=== PATIENT | male | born 1970 | race Caucasian/White ===

== ENCOUNTER 2018-02-05 09:22 | Emergency (ER) | payer MEDICAID ==
[~2018-02-05] VITALS: Ht 185.4 cm; Wt 84.0 kg
[~2018-02-05 09:22] MED LIST: IBUP-1051 PO; NORCO10T PO; PROC-8 PO
[2018-02-05 09:25] VITALS: BP 165/106
[2018-02-05] MEDS ORDERED: AMOX-422 PO (10:35)
== END 2018-02-05 10:51 | disposition home or self-care (01) ==
LOC: ER 09:22
DX: H66.92 Otitis media, unspecified, left ear (principal); G89.29 Other chronic pain; Z86.14 Personal history of Methicillin resistant Staphylococcus aureus infection; F12.10 Cannabis abuse, uncomplicated; F17.210 Nicotine dependence, cigarettes, uncomplicated
CPT/HCPCS: 99283

== ENCOUNTER 2019-01-05 22:52 | Emergency (ER) | payer MEDICAID ==
[~2019-01-05] VITALS: Ht 185.4 cm; Wt 82.0 kg
[2019-01-05 22:55] VITALS: BP 168/106
[2019-01-06] MEDS ORDERED: HYDROcodone/acetaminophen 5mg/325mg tablet PO ONE (00:30)
[2019-01-06] MEDS ORDERED: CEPH500C5 PO (00:32)
== END 2019-01-06 00:48 | disposition home or self-care (01) ==
LOC: ER 22:53
DX: L03.011 Cellulitis of right finger (principal); G89.29 Other chronic pain; F15.90 Other stimulant use, unspecified, uncomplicated; Z86.14 Personal history of Methicillin resistant Staphylococcus aureus infection; Z98.890 Other specified postprocedural states; Z79.899 Other long term (current) drug therapy
CPT/HCPCS: 10060; 99283

== ENCOUNTER 2019-05-10 17:05 | Emergency (ER) | payer MEDICAID ==
[~2019-05-10] VITALS: Ht 185.4 cm; Wt 95.9 kg
[2019-05-10] MEDS ORDERED: epiNEPHrine 1 mg/ml inj IM STA (17:08)
[2019-05-10] MEDS ORDERED: methylPREDNISolone sod succ 125mg/2ml vial IV ONE (17:10)
[2019-05-10] MEDS ORDERED: normal saline 1000ML IV soln IV ONE (17:10)
[2019-05-10] MEDS ORDERED: diphenhydrAMINE 50 mg/ml inj IV ONE (17:10)
[2019-05-10] MEDS ORDERED: famotidine/PF 10 mg/ml inj IV ONE (17:10)
[2019-05-10] MEDS ORDERED: racepinephrine 11.25mg/0.5ml nebule IH ONE (17:10)
[2019-05-10 17:56] LABS: BASOPHILS % (AUTO) 0.1 % (0-1); EOSINOPHILS # (AUTO) 0.1 X10'3 (0-0.9); EOSINOPHILS % (AUTO) 1.1 % (0-6); HEMATOCRIT 47.9 % (42.0-52.0); HEMOGLOBIN 16.4 g/dl (14.0-17.9); LYMPHOCYTES # (AUTO) 5.2 X10'3 (1.1-4.8); LYMPHOCYTES % (AUTO) 49.2 % (21-51); MEAN CORPUSCULAR HEMOGLOBIN 33.6 PG (27.0-31.0); MEAN CORPUSCULAR HGB CONC 34.3 g/dL (33.0-36.5); MONOCYTES # (AUTO) 0.5 X10'3 (0-0.9); NEUTROPHILS # (AUTO) 4.7 X10'3 (1.8-7.7); NEUTROPHILS % (AUTO) 44.6 % (42-75); PLATELET COUNT 278 X10'3 (140-440); RED BLOOD COUNT 4.89 X10'6 (4.70-6.10); RED CELL DISTRIBUTION WIDTH 13.4 % (11.5-14.5); WHITE BLOOD COUNT 10.5 X10'3 (4.5-11.0)
[2019-05-10 18:01] LABS: ALANINE AMINOTRANSFERASE 45 U/L (12-78); ALBUMIN 3.5 G/DL (3.4-5.0); ALBUMIN/GLOBULIN RATIO 0.9 (1.1-1.5); ALKALINE PHOSPHATASE 94 IU/L (46-116); ANION GAP 6 (8-16); ASPARTATE AMINO TRANSFERASE 25 U/L (10-37); BILIRUBIN,TOTAL 0.3 MG/DL (0.1-1.0); BLOOD UREA NITROGEN 12 MG/DL (7-18); CHLORIDE 102 MMOL/L (99-107); CREATININE 0.92 MG/DL (0.60-1.10); GLUCOSE 136 MG/DL (70-104); POTASSIUM 3.5 MMOL/L (3.5-5.1); SODIUM 138 MMOL/L (135-145); TOTAL CARBON DIOXIDE 30.5 MMOL/L (24-32); TOTAL PROTEIN 7.2 G/DL (6.4-8.2); eGFR 88 ML/MIN
--- NOTE | 2019-05-10 18:27 | NUR ---
Patient declines Normal saline aware
[2019-05-10 18:37] VITALS: BP 135/97
== END 2019-05-10 18:39 | disposition home or self-care (01) ==
LOC: ER 17:05
DX: T78.3XXA Angioneurotic edema, initial encounter (principal); L53.8 Other specified erythematous conditions; I10 Essential (primary) hypertension; G89.29 Other chronic pain; F12.90 Cannabis use, unspecified, uncomplicated; Z98.890 Other specified postprocedural states; Z86.14 Personal history of Methicillin resistant Staphylococcus aureus infection; Z79.899 Other long term (current) drug therapy; Y92.89 Other specified places as the place of occurrence of the external cause
CPT/HCPCS: 36415; 71045; 80053; 82948; 85025; 93005; 94640; 94760; 96372; 96374; 96375; 99291; J0171; J1200; J2930; J3490

== ENCOUNTER 2019-08-24 09:34 | Emergency (ER) | payer MEDICAID ==
[~2019-08-24] VITALS: Ht 188 cm; Wt 90.0 kg
[2019-08-24 09:51] VITALS: BP 164/109
[2019-08-24] MEDS ORDERED: SULF1TAB49 PO (10:58)
== END 2019-08-24 11:24 | disposition home or self-care (01) ==
LOC: ER 09:34
DX: L02.211 Cutaneous abscess of abdominal wall (principal); J02.9 Acute pharyngitis, unspecified; G89.29 Other chronic pain; F32.9 Major depressive disorder, single episode, unspecified; F12.90 Cannabis use, unspecified, uncomplicated; F17.210 Nicotine dependence, cigarettes, uncomplicated; Z86.14 Personal history of Methicillin resistant Staphylococcus aureus infection; Z98.890 Other specified postprocedural states; Z88.8 Allergy status to other drugs, medicaments and biological substances; Z79.2 Long term (current) use of antibiotics
CPT/HCPCS: 99283

== ENCOUNTER 2019-10-10 08:42 | Emergency (ER) | payer MEDICAID ==
[~2019-10-10] VITALS: Ht 154.9 cm; Wt 92.9 kg
[2019-10-10 08:55] VITALS: BP 138/104
== END 2019-10-10 09:36 | disposition home or self-care (01) ==
LOC: ER 08:42
DX: J04.0 Acute laryngitis (principal); F17.200 Nicotine dependence, unspecified, uncomplicated; G89.29 Other chronic pain; F12.90 Cannabis use, unspecified, uncomplicated; Z98.890 Other specified postprocedural states; Z86.14 Personal history of Methicillin resistant Staphylococcus aureus infection; Z88.8 Allergy status to other drugs, medicaments and biological substances
CPT/HCPCS: 99281

== ENCOUNTER 2022-04-17 16:02 | Emergency (ER) | payer MEDICAID ==
[~2022-04-17] VITALS: Ht 177.8 cm; Wt 84.5 kg
[2022-04-17 16:25] VITALS: BP 138/113
[2022-04-17] MEDS ORDERED: CEPH250T PO (17:21)
== END 2022-04-17 17:33 | disposition home or self-care (01) ==
LOC: VAS 16:03
DX: L02.412 Cutaneous abscess of left axilla (principal); L73.9 Follicular disorder, unspecified; G89.29 Other chronic pain; F32.9 Major depressive disorder, single episode, unspecified; F12.90 Cannabis use, unspecified, uncomplicated; Z86.14 Personal history of Methicillin resistant Staphylococcus aureus infection; Z72.89 Other problems related to lifestyle; Z79.899 Other long term (current) drug therapy; Z88.8 Allergy status to other drugs, medicaments and biological substances
CPT/HCPCS: 10060; 99283; A6266; A6449

== ENCOUNTER 2022-05-10 15:58 | Emergency (ER) | payer MEDICAID ==
[~2022-05-10] VITALS: Ht 179.1 cm; Wt 84.5 kg
[2022-05-10 16:04] VITALS: BP 164/103
[2022-05-10] MEDS ORDERED: CLIN-97 PO (17:03)
== END 2022-05-10 18:25 | disposition home or self-care (01) ==
LOC: ER 15:59
DX: L02.411 Cutaneous abscess of right axilla (principal); G89.29 Other chronic pain; M54.50 Low back pain, unspecified; F12.90 Cannabis use, unspecified, uncomplicated; Z88.8 Allergy status to other drugs, medicaments and biological substances
CPT/HCPCS: 99283

== ENCOUNTER 2022-11-05 23:45 | Emergency (ER) | payer MEDICAID ==
[~2022-11-05] VITALS: Ht 182.9 cm; Wt 84.1 kg
[~2022-11-05 23:45] MED LIST changes: +CLIN-97 PO
[2022-11-06 03:07] VITALS: BP 164/116
--- NOTE | 2022-11-06 03:46 | NUR ---
I agree with Odette Sanchez assessment.
== END 2022-11-06 03:48 | disposition home or self-care (01) ==
LOC: ER 23:46
DX: M54.9 Dorsalgia, unspecified (principal); I10 Essential (primary) hypertension; G89.29 Other chronic pain; F41.9 Anxiety disorder, unspecified; F32.9 Major depressive disorder, single episode, unspecified; F12.90 Cannabis use, unspecified, uncomplicated; F15.90 Other stimulant use, unspecified, uncomplicated; Z86.14 Personal history of Methicillin resistant Staphylococcus aureus infection; Z72.89 Other problems related to lifestyle; Z79.899 Other long term (current) drug therapy; Z88.8 Allergy status to other drugs, medicaments and biological substances
CPT/HCPCS: 71046; 99283

== ENCOUNTER 2023-01-25 20:11 | Emergency (ER) | payer MEDICAID ==
[~2023-01-25] VITALS: Ht 182.9 cm; Wt 80.0 kg
[2023-01-25 20:15] VITALS: BP 167/107
== END 2023-01-26 01:26 | disposition left against medical advice (07) ==
LOC: ER 20:11
DX: R51.9 Headache, unspecified (principal); Z53.21 Procedure and treatment not carried out due to patient leaving prior to being seen by health care provider
CPT/HCPCS: 99281

== ENCOUNTER 2023-10-17 14:50 | Emergency (ER) | payer MEDICAID ==
[~2023-10-17] VITALS: Ht 182.9 cm; Wt 88.6 kg
[2023-10-17] MEDS ORDERED: epiNEPHrine 1 mg/ml inj IM STA (14:52)
[2023-10-17 14:54] VITALS: TEMP 98
[2023-10-17] MEDS ORDERED: diphenhydrAMINE 50 mg/ml inj IV ONE (14:55)
[2023-10-17] MEDS ORDERED: methylPREDNISolone sod succ 125mg/2ml vial IV ONE (14:55)
[2023-10-17] MEDS ORDERED: famotidine/PF 10 mg/ml inj IV STA (15:27)
[2023-10-17 15:55] VITALS: BP 130/93; PULSE 86; RESP 18; O2SAT 99
[2023-10-17] MEDS ORDERED: FAMO-128 PO (17:38)
[2023-10-17] MEDS ORDERED: DIPH25CA83 PO (17:38)
[2023-10-17] MEDS ORDERED: PRED20TA PO (17:38)
== END 2023-10-17 17:59 | disposition home or self-care (01) ==
LOC: ER 14:51
DX: L50.9 Urticaria, unspecified (principal); T78.1XXA Other adverse food reactions, not elsewhere classified, initial encounter; I10 Essential (primary) hypertension; G89.29 Other chronic pain; F12.90 Cannabis use, unspecified, uncomplicated; F15.90 Other stimulant use, unspecified, uncomplicated; Z72.89 Other problems related to lifestyle; Z79.899 Other long term (current) drug therapy; Z79.2 Long term (current) use of antibiotics; Z88.8 Allergy status to other drugs, medicaments and biological substances; X58.XXXA Exposure to other specified factors, initial encounter
CPT/HCPCS: 96372; 96374; 96375; 99284; J0171; J1200; J2930; J3490

== ENCOUNTER 2023-10-30 00:44 | Emergency (ER) | payer MEDICAID ==
[~2023-10-30] VITALS: Ht 175.3 cm; Wt 75.0 kg
[~2023-10-30 00:44] MED LIST changes: +DIPH25CA83 PO; +FAMO-128 PO
[2023-10-30] MEDS ORDERED: iohexol 350MG/ML 100ml bottle IV ONE (01:49)
[2023-10-30 03:07] LABS: BASOPHILS # (AUTO) 0.1 X10'3 (0-0.2); BASOPHILS % (AUTO) 1.1 % (0-1); EOSINOPHILS # (AUTO) 0.3 X10'3 (0-0.9); HEMATOCRIT 41.9 % (42.0-52.0); HEMOGLOBIN 14.3 g/dl (14.0-17.9); LYMPHOCYTES # (AUTO) 2.9 X10'3 (1.1-4.8); LYMPHOCYTES % (AUTO) 33.6 % (21-51); MEAN CORPUSCULAR HEMOGLOBIN 32.6 PG (27.0-31.0); MEAN CORPUSCULAR HGB CONC 34.2 g/dL (33.0-36.5); MEAN CORPUSCULAR VOLUME 95.4 FL (78-98); MEAN PLATELET VOLUME 8.4 FL (7.4-10.4); MONOCYTES # (AUTO) 0.7 X10'3 (0-0.9); MONOCYTES % (AUTO) 7.8 % (2-12); NEUTROPHILS # (AUTO) 4.7 X10'3 (1.8-7.7); NEUTROPHILS % (AUTO) 54.5 % (42-75); PLATELET COUNT 239 X10'3 (140-440); RED BLOOD COUNT 4.39 X10'6 (4.70-6.10); RED CELL DISTRIBUTION WIDTH 12.9 % (11.5-14.5); WHITE BLOOD COUNT 8.7 X10'3 (4.5-11.0)
[2023-10-30 03:55] LABS: ALANINE AMINOTRANSFERASE 44 U/L (12-78); ALBUMIN 3.1 G/DL (3.4-5.0); ALBUMIN/GLOBULIN RATIO 0.9 (1.1-1.5); ALKALINE PHOSPHATASE 86 IU/L (46-116); ANION GAP 7 (8-16); ASPARTATE AMINO TRANSFERASE 24 U/L (10-37); BILIRUBIN,TOTAL 0.2 MG/DL (0.1-1.0); BLOOD UREA NITROGEN 9 MG/DL (7-18); BUN/CREATININE RATIO 11.5 (10.0-20.0); CALCIUM 8.8 MG/DL (8.5-10.1); CHLORIDE 103 MMOL/L (99-107); CREATININE 0.78 MG/DL (0.60-1.10); GLUCOSE 104 MG/DL (70-104); POTASSIUM 3.4 MMOL/L (3.5-5.1); SODIUM 139 MMOL/L (135-145); TOTAL CARBON DIOXIDE 28.8 MMOL/L (24-32); TOTAL PROTEIN 6.4 G/DL (6.4-8.2); eCRCL 112 ML/MIN; eGFR > 90 ML/MIN
[2023-10-30 04:06] LABS: PRO BRAIN NATRIURETIC PEPTIDE < 30 PG/ML (0-125)
[2023-10-30 07:10] VITALS: BP 119/79; PULSE 75; RESP 16; TEMP 98.4; O2SAT 97
== END 2023-10-30 09:37 | disposition home or self-care (01) ==
LOC: ER 00:45
DX: R07.89 Other chest pain (principal); R06.02 Shortness of breath; M54.6 Pain in thoracic spine; I10 Essential (primary) hypertension; G89.29 Other chronic pain; F41.9 Anxiety disorder, unspecified; F32.9 Major depressive disorder, single episode, unspecified; F12.90 Cannabis use, unspecified, uncomplicated; F15.90 Other stimulant use, unspecified, uncomplicated; Z98.890 Other specified postprocedural states; Z88.8 Allergy status to other drugs, medicaments and biological substances; Z79.899 Other long term (current) drug therapy
CPT/HCPCS: 36415; 71275; 80053; 83880; 84484; 85025; 93005; 99285; J3490; Q9967

== ENCOUNTER 2023-11-08 13:44 | Inpatient (IN) | payer MEDICAID ==
[~2023-11-08] VITALS: Ht 182.9 cm; Wt 89.4 kg
[2023-11-08 15:53] LABS: BASOPHILS % (AUTO) 0.5 % (0-1); EOSINOPHILS # (AUTO) 0.2 X10'3 (0-0.9); EOSINOPHILS % (AUTO) 1.7 % (0-6); HEMOGLOBIN 15.5 g/dl (14.0-17.9); LYMPHOCYTES % (AUTO) 19.6 % (21-51); MEAN CORPUSCULAR HGB CONC 34.6 g/dL (33.0-36.5); MEAN CORPUSCULAR VOLUME 95.3 FL (78-98); MEAN PLATELET VOLUME 8.5 FL (7.4-10.4); MONOCYTES # (AUTO) 0.8 X10'3 (0-0.9); MONOCYTES % (AUTO) 7.9 % (2-12); NEUTROPHILS # (AUTO) 7.3 X10'3 (1.8-7.7); NEUTROPHILS % (AUTO) 70.3 % (42-75); PLATELET COUNT 300 X10'3 (140-440); RED BLOOD COUNT 4.71 X10'6 (4.70-6.10); RED CELL DISTRIBUTION WIDTH 13.2 % (11.5-14.5); WHITE BLOOD COUNT 10.4 X10'3 (4.5-11.0)
[2023-11-08 16:12] LABS: ALANINE AMINOTRANSFERASE 35 U/L (12-78); ALBUMIN 3.1 G/DL (3.4-5.0); ALBUMIN/GLOBULIN RATIO 0.7 (1.1-1.5); ALKALINE PHOSPHATASE 117 IU/L (46-116); ANION GAP 5 (8-16); ASPARTATE AMINO TRANSFERASE 22 U/L (10-37); BILIRUBIN,TOTAL 0.2 MG/DL (0.1-1.0); BLOOD UREA NITROGEN 10 MG/DL (7-18); BUN/CREATININE RATIO 8.6 (10.0-20.0); CALCIUM 8.9 MG/DL (8.5-10.1); CHLORIDE 98 MMOL/L (99-107); CREATININE 1.16 MG/DL (0.60-1.10); GLUCOSE 91 MG/DL (70-104); POTASSIUM 3.8 MMOL/L (3.5-5.1); SODIUM 133 MMOL/L (135-145); TOTAL CARBON DIOXIDE 29.7 MMOL/L (24-32); TOTAL PROTEIN 7.5 G/DL (6.4-8.2); eCRCL 83 ML/MIN; eGFR 66 ML/MIN
[2023-11-08] MEDS ORDERED: morphine 4 MG/ML inj SYRINge IV ONE (16:20)
[2023-11-08] MEDS ORDERED: iohexol 300mg/ml 100ml inj. ONE (16:45)
[2023-11-08] MEDS ORDERED: vancomycin/NS 1 GM ADD-VANTAGE 250 ML IV ONE (18:05)
[2023-11-08] MEDS: nicotine 21mg patch - 24 hr TD SCH (20:49)
[2023-11-08] MEDS ORDERED: potassium Cl 20 mEq SR tablet PO PRN ×2 (21:15)
[2023-11-08] MEDS ORDERED: morphine 2 MG/ML inj. syringe IV PRN ×2 (21:15)
[2023-11-08] MEDS: normal saline 1000ml 1,000 ML IV SCH (21:15)
[2023-11-08] MEDS ORDERED: potassium Cl 40MEQ/1/2NS 520ml 520 ML IV PRN (21:15)
[2023-11-08] MEDS ORDERED: mag hydrox/Alum hydrox/simeth 30ml oral suspension PO PRN (21:15)
[2023-11-08] MEDS ORDERED: magnesium Cl slow-release 64mg tablet PO PRN (21:15)
[2023-11-08] MEDS ORDERED: magnesium 2GM in 50ml NS 50 ML IV PRN (21:15)
[2023-11-08] MEDS ORDERED: diphenhydrAMINE 25mg capsule PO PRN (21:15)
[2023-11-08] MEDS ORDERED: ondansetron/PF 4mg/2ml inj IV PRN (21:15)
[2023-11-08] MEDS ORDERED: HYDROcodone/acetaminophen 5mg/325mg tablet PO PRN (21:15)
[2023-11-08] MEDS ORDERED: acetaminophen 325mg tablet PO PRN (21:15)
[2023-11-08] MEDS ORDERED: magnesium 4gm in 100ml NS 100 ML IV PRN (21:15)
[2023-11-08] MEDS ORDERED: LORazepam 2 mg/ml vial IV PRN (21:25)
[2023-11-08 23:45] VITALS: BP 143/88; PULSE 100; RESP 22; TEMP 98.8; O2SAT 96
[2023-11-08 23:50] VITALS: RESP 22; O2SAT 96
[2023-11-09] VITALS (7 sets, daily range): BP systolic 117–148; BP diastolic 71–89; PULSE 89–98; RESP 18–22; TEMP 97.7–99.9; O2SAT 90–98
[2023-11-09] MEDS: piperacillin/tazo 4.5gm/100ml 100 ML IV SCH ×3 (00:08→16:06)
[2023-11-09] MEDS: magnesium hydroxide 30ml (MOM) UD suspension PO PRN ×2 (00:09→22:04)
[2023-11-09] MEDS: heparin, porcine 5000 units/ml vial SQ SCH ×3 (00:15→16:07)
[2023-11-09] MEDS ORDERED: vancomycin/NS 1 GM ADD-VANTAGE 250 ML IV SCH (06:00)
[2023-11-09 06:59] LABS: BASOPHILS # (AUTO) 0.1 X10'3 (0-0.2); BASOPHILS % (AUTO) 1.2 % (0-1); EOSINOPHILS # (AUTO) 0.2 X10'3 (0-0.9); EOSINOPHILS % (AUTO) 2.1 % (0-6); HEMATOCRIT 39.9 % (42.0-52.0); HEMOGLOBIN 13.8 g/dl (14.0-17.9); LYMPHOCYTES % (AUTO) 22.4 % (21-51); MEAN CORPUSCULAR HEMOGLOBIN 32.8 PG (27.0-31.0); MEAN CORPUSCULAR HGB CONC 34.6 g/dL (33.0-36.5); MEAN CORPUSCULAR VOLUME 94.7 FL (78-98); MEAN PLATELET VOLUME 8.6 FL (7.4-10.4); MONOCYTES # (AUTO) 0.7 X10'3 (0-0.9); MONOCYTES % (AUTO) 8.4 % (2-12); NEUTROPHILS # (AUTO) 5.8 X10'3 (1.8-7.7); NEUTROPHILS % (AUTO) 65.9 % (42-75); PLATELET COUNT 263 X10'3 (140-440); RED BLOOD COUNT 4.21 X10'6 (4.70-6.10); RED CELL DISTRIBUTION WIDTH 13.3 % (11.5-14.5); WHITE BLOOD COUNT 8.8 X10'3 (4.5-11.0)
[2023-11-09 07:11] LABS: PROTHROMBIN TIME 9.9 SECONDS (9.0-12.0)
[2023-11-09 07:15] LABS: INR 0.9 INR
[2023-11-09 07:28] LABS: ALANINE AMINOTRANSFERASE 32 U/L (12-78); ALBUMIN 2.6 G/DL (3.4-5.0); ALBUMIN/GLOBULIN RATIO 0.6 (1.1-1.5); ALKALINE PHOSPHATASE 99 IU/L (46-116); ANION GAP 7 (8-16); ASPARTATE AMINO TRANSFERASE 21 U/L (10-37); BILIRUBIN,TOTAL 0.4 MG/DL (0.1-1.0); BLOOD UREA NITROGEN 10 MG/DL (7-18); BUN/CREATININE RATIO 10.2 (10.0-20.0); CALCIUM 8.4 MG/DL (8.5-10.1); CHLORIDE 101 MMOL/L (99-107); CREATININE 0.98 MG/DL (0.60-1.10); GLUCOSE 106 MG/DL (70-104); MAGNESIUM 2.3 MG/DL (1.5-2.4); POTASSIUM 3.9 MMOL/L (3.5-5.1); SODIUM 135 MMOL/L (135-145); TOTAL PROTEIN 6.7 G/DL (6.4-8.2); eCRCL 98 ML/MIN; eGFR 81 ML/MIN
[2023-11-09] MEDS: K and/or MAG REPLACEMENT MC SCH ×2 (07:45→20:00)
[2023-11-09] MEDS: docusate sod 100mg capsule PO SCH ×2 (07:51→19:31)
[2023-11-09] MEDS: normal saline 1000ml 1,000 ML IV SCH ×2 (12:36→17:15)
[2023-11-09] MEDS ORDERED: hydrALAZINE 20mg/ml inj. IV PRN (19:15)
[2023-11-09] MEDS: HYDROcodone/acetaminophen 10/325mg tab PO PRN (19:31)
[2023-11-09] MEDS: VANCOmycin 1250MG/NS 250ml Bag 250 ML IV SCH ×2 (21:36→21:43)
[2023-11-09] MEDS: mupirocin 2% ointment 22GM TP SCH (21:40)
[2023-11-09] MEDS: nicotine 21mg patch - 24 hr TD SCH (21:48)
[2023-11-10] MEDS: normal saline 1000ml 1,000 ML IV SCH ×3 (00:05→22:35)
[2023-11-10] MEDS: piperacillin/tazo 4.5gm/100ml 100 ML IV SCH ×3 (00:06→16:07)
[2023-11-10] MEDS: heparin, porcine 5000 units/ml vial SQ SCH ×3 (00:10→16:00)
[2023-11-10] MEDS: HYDROcodone/acetaminophen 10/325mg tab PO PRN ×2 (05:14→19:39)
[2023-11-10 06:00] VITALS: BP 131/78; PULSE 84; RESP 16; TEMP 99.4; O2SAT 95
[2023-11-10 06:13] LABS: BASOPHILS % (AUTO) 0.5 % (0-1); EOSINOPHILS # (AUTO) 0.2 X10'3 (0-0.9); EOSINOPHILS % (AUTO) 2.6 % (0-6); HEMATOCRIT 40.2 % (42.0-52.0); HEMOGLOBIN 13.7 g/dl (14.0-17.9); LYMPHOCYTES # (AUTO) 1.8 X10'3 (1.1-4.8); LYMPHOCYTES % (AUTO) 24.3 % (21-51); MEAN CORPUSCULAR HEMOGLOBIN 32.8 PG (27.0-31.0); MEAN CORPUSCULAR HGB CONC 34.1 g/dL (33.0-36.5); MEAN CORPUSCULAR VOLUME 96.1 FL (78-98); MEAN PLATELET VOLUME 8.6 FL (7.4-10.4); MONOCYTES # (AUTO) 0.8 X10'3 (0-0.9); MONOCYTES % (AUTO) 11.6 % (2-12); NEUTROPHILS # (AUTO) 4.4 X10'3 (1.8-7.7); PLATELET COUNT 255 X10'3 (140-440); RED BLOOD COUNT 4.18 X10'6 (4.70-6.10); RED CELL DISTRIBUTION WIDTH 13.3 % (11.5-14.5); WHITE BLOOD COUNT 7.3 X10'3 (4.5-11.0)
[2023-11-10 06:29] LABS: ALANINE AMINOTRANSFERASE 39 U/L (12-78); ALBUMIN 2.5 G/DL (3.4-5.0); ALBUMIN/GLOBULIN RATIO 0.6 (1.1-1.5); ALKALINE PHOSPHATASE 96 IU/L (46-116); ANION GAP 8 (8-16); ASPARTATE AMINO TRANSFERASE 27 U/L (10-37); BILIRUBIN,TOTAL 0.3 MG/DL (0.1-1.0); BLOOD UREA NITROGEN 7 MG/DL (7-18); BUN/CREATININE RATIO 7.1 (10.0-20.0); CALCIUM 8.4 MG/DL (8.5-10.1); CHLORIDE 101 MMOL/L (99-107); CREATININE 0.99 MG/DL (0.60-1.10); GLUCOSE 136 MG/DL (70-104); MAGNESIUM 2.2 MG/DL (1.5-2.4); POTASSIUM 3.8 MMOL/L (3.5-5.1); SODIUM 134 MMOL/L (135-145); TOTAL CARBON DIOXIDE 25.1 MMOL/L (24-32); TOTAL PROTEIN 6.8 G/DL (6.4-8.2); eCRCL 97 ML/MIN; eGFR 80 ML/MIN
[2023-11-10] MEDS: K and/or MAG REPLACEMENT MC SCH ×2 (08:00→20:00)
[2023-11-10 08:06] VITALS: RESP 16; O2SAT 95
[2023-11-10] MEDS: docusate sod 100mg capsule PO SCH ×2 (08:06→19:40)
[2023-11-10] MEDS: amLODIPine 5mg tablet PO SCH (08:07)
[2023-11-10] MEDS: nicotine 21mg patch - 24 hr TD SCH (08:08)
[2023-11-10] MEDS: mupirocin 2% ointment 22GM TP SCH (08:08)
[2023-11-10 10:00] VITALS: BP 138/78; PULSE 87; RESP 16; TEMP 98.7; O2SAT 94
[2023-11-10 18:00] VITALS: BP 136/92; PULSE 94; RESP 16; TEMP 98.8; O2SAT 100
[2023-11-10] MEDS: VANCOmycin 1250MG/NS 250ml Bag 250 ML IV SCH (19:39)
[2023-11-10 22:00] VITALS: BP 127/85; PULSE 87; RESP 13; TEMP 98.3; O2SAT 96
[2023-11-11] VITALS (7 sets, daily range): BP systolic 122–147; BP diastolic 74–96; PULSE 67–95; RESP 17–76; TEMP 97.7–98.3; O2SAT 93–98
[2023-11-11] MEDS: piperacillin/tazo 4.5gm/100ml 100 ML IV SCH ×3 (00:07→17:12)
[2023-11-11] MEDS: heparin, porcine 5000 units/ml vial SQ SCH ×3 (00:07→17:12)
[2023-11-11] MEDS ORDERED: VANCOMYCIN LEVEL IV ONE (06:30)
[2023-11-11 07:08] LABS: BASOPHILS % (AUTO) 0.6 % (0-1); EOSINOPHILS # (AUTO) 0.3 X10'3 (0-0.9); HEMATOCRIT 44.2 % (42.0-52.0); LYMPHOCYTES # (AUTO) 2.6 X10'3 (1.1-4.8); LYMPHOCYTES % (AUTO) 35.6 % (21-51); MEAN CORPUSCULAR HEMOGLOBIN 32.6 PG (27.0-31.0); MEAN PLATELET VOLUME 8.4 FL (7.4-10.4); MONOCYTES # (AUTO) 0.7 X10'3 (0-0.9); MONOCYTES % (AUTO) 9.7 % (2-12); NEUTROPHILS # (AUTO) 3.6 X10'3 (1.8-7.7); NEUTROPHILS % (AUTO) 50.1 % (42-75); PLATELET COUNT 298 X10'3 (140-440); RED CELL DISTRIBUTION WIDTH 12.8 % (11.5-14.5); WHITE BLOOD COUNT 7.2 X10'3 (4.5-11.0)
[2023-11-11 07:12] LABS: ALANINE AMINOTRANSFERASE 44 U/L (12-78); ALBUMIN 2.6 G/DL (3.4-5.0); ALBUMIN/GLOBULIN RATIO 0.5 (1.1-1.5); ALKALINE PHOSPHATASE 96 IU/L (46-116); ANION GAP 8 (8-16); ASPARTATE AMINO TRANSFERASE 28 U/L (10-37); BILIRUBIN,TOTAL 0.3 MG/DL (0.1-1.0); BLOOD UREA NITROGEN 10 MG/DL (7-18); BUN/CREATININE RATIO 11.6 (10.0-20.0); CHLORIDE 103 MMOL/L (99-107); CREATININE 0.86 MG/DL (0.60-1.10); GLUCOSE 103 MG/DL (70-104); MAGNESIUM 2.2 MG/DL (1.5-2.4); POTASSIUM 3.9 MMOL/L (3.5-5.1); SODIUM 137 MMOL/L (135-145); TOTAL CARBON DIOXIDE 26.1 MMOL/L (24-32); TOTAL PROTEIN 7.4 G/DL (6.4-8.2); VANCOMYCIN,TROUGH 9.3 ug/mL (10.0-20.0); eCRCL 112 ML/MIN; eGFR > 90 ML/MIN
[2023-11-11] MEDS: VANCOmycin 1250MG/NS 250ml Bag 250 ML IV SCH ×2 (07:46→15:11)
[2023-11-11] MEDS: docusate sod 100mg capsule PO SCH ×2 (07:46→21:03)
[2023-11-11] MEDS: nicotine 21mg patch - 24 hr TD SCH (07:47)
[2023-11-11] MEDS: amLODIPine 5mg tablet PO SCH (07:47)
[2023-11-11] MEDS: magnesium hydroxide 30ml (MOM) UD suspension PO PRN (07:55)
[2023-11-11] MEDS: K and/or MAG REPLACEMENT MC SCH ×2 (07:56→20:00)
[2023-11-11] MEDS: mupirocin 2% ointment 22GM TP SCH (08:03)
[2023-11-11] MEDS: normal saline 1000ml 1,000 ML IV SCH ×2 (09:35→20:59)
[2023-11-11] MEDS: HYDROcodone/acetaminophen 10/325mg tab PO PRN (21:02)
[2023-11-12] MEDS: VANCOmycin 1250MG/NS 250ml Bag 250 ML IV SCH ×2 (00:19→08:29)
[2023-11-12] MEDS: heparin, porcine 5000 units/ml vial SQ SCH ×2 (00:22→08:30)
[2023-11-12] MEDS: piperacillin/tazo 4.5gm/100ml 100 ML IV SCH ×2 (01:19→10:18)
[2023-11-12] MEDS: normal saline 1000ml 1,000 ML IV SCH (05:15)
[2023-11-12] MEDS ORDERED: VANCOMYCIN LEVEL IV ONE (06:30)
[2023-11-12 06:52] VITALS: BP 122/74; PULSE 85; RESP 16; TEMP 98.5; O2SAT 94
[2023-11-12] MEDS: docusate sod 100mg capsule PO SCH (08:00)
[2023-11-12] MEDS: K and/or MAG REPLACEMENT MC SCH (08:00)
[2023-11-12] MEDS: mupirocin 2% ointment 22GM TP SCH (08:00)
[2023-11-12 08:03] LABS: BASOPHILS % (AUTO) 0.5 % (0-1); EOSINOPHILS # (AUTO) 0.4 X10'3 (0-0.9); EOSINOPHILS % (AUTO) 4.8 % (0-6); HEMATOCRIT 44.1 % (42.0-52.0); HEMOGLOBIN 15.1 g/dl (14.0-17.9); LYMPHOCYTES # (AUTO) 2.5 X10'3 (1.1-4.8); LYMPHOCYTES % (AUTO) 34.2 % (21-51); MEAN CORPUSCULAR HEMOGLOBIN 32.5 PG (27.0-31.0); MEAN CORPUSCULAR HGB CONC 34.1 g/dL (33.0-36.5); MEAN CORPUSCULAR VOLUME 95.1 FL (78-98); MEAN PLATELET VOLUME 8.2 FL (7.4-10.4); MONOCYTES # (AUTO) 0.7 X10'3 (0-0.9); MONOCYTES % (AUTO) 9.9 % (2-12); NEUTROPHILS # (AUTO) 3.7 X10'3 (1.8-7.7); NEUTROPHILS % (AUTO) 50.6 % (42-75); PLATELET COUNT 310 X10'3 (140-440); RED BLOOD COUNT 4.64 X10'6 (4.70-6.10); RED CELL DISTRIBUTION WIDTH 13.4 % (11.5-14.5); WHITE BLOOD COUNT 7.3 X10'3 (4.5-11.0)
[2023-11-12 08:09] LABS: ALANINE AMINOTRANSFERASE 46 U/L (12-78); ALBUMIN 2.6 G/DL (3.4-5.0); ALBUMIN/GLOBULIN RATIO 0.6 (1.1-1.5); ALKALINE PHOSPHATASE 87 IU/L (46-116); ANION GAP 10 (8-16); ASPARTATE AMINO TRANSFERASE 28 U/L (10-37); BILIRUBIN,TOTAL 0.3 MG/DL (0.1-1.0); BLOOD UREA NITROGEN 12 MG/DL (7-18); BUN/CREATININE RATIO 13.5 (10.0-20.0); CALCIUM 8.7 MG/DL (8.5-10.1); CHLORIDE 103 MMOL/L (99-107); CREATININE 0.89 MG/DL (0.60-1.10); GLUCOSE 99 MG/DL (70-104); POTASSIUM 3.8 MMOL/L (3.5-5.1); SODIUM 137 MMOL/L (135-145); TOTAL CARBON DIOXIDE 24.2 MMOL/L (24-32); TOTAL PROTEIN 7.3 G/DL (6.4-8.2); eCRCL 108 ML/MIN; eGFR 90 ML/MIN
[2023-11-12] MEDS: amLODIPine 5mg tablet PO SCH (08:30)
[2023-11-12] MEDS: nicotine 21mg patch - 24 hr TD SCH (08:31)
[2023-11-12 10:00] VITALS: BP 139/99; PULSE 88; RESP 15; TEMP 98.2; O2SAT 97
[2023-11-12] MEDS ORDERED: AMOX-117 PO (13:25)
[2023-11-12] MEDS ORDERED: AMLO10TA PO (13:25)
== END 2023-11-12 14:00 | disposition home or self-care (01) | DRG 383 ==
LOC: ER 13:45 → ED HOLD 21:19 → ORTHO 4S 23:30
PROVIDERS: ADMIT Family Medicine; ATTEND Family Medicine
DX: L03.116 Cellulitis of left lower limb (principal); N17.9 Acute kidney failure, unspecified; E87.1 Hypo-osmolality and hyponatremia; F32.A Depression, unspecified; F41.9 Anxiety disorder, unspecified; L03.115 Cellulitis of right lower limb; N18.9 Chronic kidney disease, unspecified; F19.10 Other psychoactive substance abuse, uncomplicated; M54.9 Dorsalgia, unspecified; I12.9 Hypertensive chronic kidney disease with stage 1 through stage 4 chronic kidney disease, or unspecified chronic kidney disease; L02.416 Cutaneous abscess of left lower limb; G89.29 Other chronic pain; Z88.8 Allergy status to other drugs, medicaments and biological substances; Z88.6 Allergy status to analgesic agent; Z79.899 Other long term (current) drug therapy; Z82.49 Family history of ischemic heart disease and other diseases of the circulatory system
CPT/HCPCS: 36415; 73701; 80053; 80202; 83605; 83735; 84145; 85025; 85610; 87040; 87070; 87077; 87081; 87186; 93971; 99285; A6212; A6446; A6449; G0378; J1644; J2270; J2543; J3370; J7030; Q9967

== ENCOUNTER 2024-02-23 04:44 | Inpatient (IN) | payer MEDICAID ==
[~2024-02-23] VITALS: Ht 182.9 cm; Wt 95.9 kg
[~2024-02-23 04:44] MED LIST changes: +AMLO10TA PO; -CLIN-97 PO
[2024-02-23 06:17] LABS: BASOPHILS # (AUTO) 0.1 X10'3 (0-0.2); EOSINOPHILS # (AUTO) 0.2 X10'3 (0-0.9); EOSINOPHILS % (AUTO) 1.7 % (0-6); HEMATOCRIT 44.6 % (42.0-52.0); HEMOGLOBIN 15.1 g/dl (14.0-17.9); LYMPHOCYTES # (AUTO) 2.4 X10'3 (1.1-4.8); LYMPHOCYTES % (AUTO) 21.8 % (21-51); MEAN CORPUSCULAR HEMOGLOBIN 32.5 PG (27.0-31.0); MEAN CORPUSCULAR HGB CONC 33.9 g/dL (33.0-36.5); MEAN CORPUSCULAR VOLUME 95.8 FL (78-98); MEAN PLATELET VOLUME 8.7 FL (7.4-10.4); MONOCYTES # (AUTO) 0.8 X10'3 (0-0.9); NEUTROPHILS # (AUTO) 7.4 X10'3 (1.8-7.7); NEUTROPHILS % (AUTO) 68.5 % (42-75); PLATELET COUNT 250 X10'3 (140-440); RED BLOOD COUNT 4.66 X10'6 (4.70-6.10); RED CELL DISTRIBUTION WIDTH 13.3 % (11.5-14.5); WHITE BLOOD COUNT 10.8 X10'3 (4.5-11.0)
[2024-02-23 06:35] LABS: ALBUMIN 2.9 G/DL (3.4-5.0); ANION GAP 7 (8-16); BLOOD UREA NITROGEN 11 MG/DL (7-18); BUN/CREATININE RATIO 12.8 (10.0-20.0); CHLORIDE 103 MMOL/L (99-107); CREATININE 0.86 MG/DL (0.60-1.10); GLUCOSE 122 MG/DL (70-104); POTASSIUM 3.6 MMOL/L (3.5-5.1); PRO BRAIN NATRIURETIC PEPTIDE < 30 PG/ML (0-125); SODIUM 138 MMOL/L (135-145); TOTAL CARBON DIOXIDE 28.3 MMOL/L (24-32); eCRCL 112 ML/MIN; eGFR > 90 ML/MIN
[2024-02-23] MEDS: piperacillin/tazo 3.375gm/50ml 50 ML IV SCH (08:00)
[2024-02-23] MEDS: normal saline 1000ml 1,000 ML IV ONE (08:03)
[2024-02-23] MEDS: enoxaparin 100mg/ml syringe SUBCUT ONE (08:05)
[2024-02-23] MEDS: piperacillin/tazo 3.375gm/50ml 50 ML IV ONE (08:14)
[2024-02-23] MEDS: vancomycin inj 1,000 MG in normal saline 250ml IV soln 250 ML IV ONE (08:48)
[2024-02-23] MEDS ORDERED: acetaminophen 325mg tablet PO PRN ×2 (09:35)
[2024-02-23] MEDS ORDERED: HYDROcodone/acetaminophen 5mg/325mg tablet PO PRN (09:35)
[2024-02-23] MEDS ORDERED: magnesium 4gm in 100ml NS 100 ML IV PRN (09:35)
[2024-02-23] MEDS ORDERED: potassium Cl 40MEQ/1/2NS 520ml 520 ML IV PRN (09:35)
[2024-02-23] MEDS ORDERED: potassium Cl 20 mEq SR tablet PO PRN ×2 (09:35)
[2024-02-23] MEDS ORDERED: ondansetron/PF 4mg/2ml inj IV PRN (09:35)
[2024-02-23] MEDS ORDERED: morphine 2 MG/ML inj. syringe IV PRN (09:35)
[2024-02-23] MEDS ORDERED: magnesium 2GM in 50ml NS 50 ML IV PRN (09:35)
[2024-02-23] MEDS ORDERED: magnesium Cl slow-release 64mg tablet PO PRN (09:35)
[2024-02-23] MEDS: normal saline 1000ml 1,000 ML IV SCH (10:09)
[2024-02-23] MEDS ORDERED: BUSP5TAB3 PO (10:13)
[2024-02-23 17:00] VITALS: RESP 16
[2024-02-23 17:43] VITALS: BP 143/99; PULSE 84; RESP 16; TEMP 98; O2SAT 97
[2024-02-23] MEDS: HYDROcodone/acetaminophen 10/325mg tab PO PRN (18:00)
[2024-02-23] MEDS: vancomycin/NS 1 GM ADD-VANTAGE 250 ML IV SCH (18:08)
[2024-02-23 20:00] VITALS: RESP 18; O2SAT 96
[2024-02-23] MEDS: busPIRone 5mg tablet PO SCH (21:35)
[2024-02-23] MEDS: nicotine 14mg patch - 24hr TD ONE (21:38)
[2024-02-23 22:00] VITALS: BP 123/85; PULSE 87; RESP 16; TEMP 98.4; O2SAT 96
[2024-02-24] VITALS (8 sets, daily range): BP systolic 116–138; BP diastolic 68–80; PULSE 74–87; RESP 16–19; TEMP 96.7–98.6; O2SAT 93–98
[2024-02-24] MEDS: morphine 2 MG/ML inj. syringe IV PRN (02:57)
[2024-02-24] MEDS: amLODIPine 5mg tablet PO SCH (08:12)
[2024-02-24] MEDS: enoxaparin 40mg/0.4ml syringe SUBCUT SCH (08:13)
[2024-02-24] MEDS: VANCOMYCIN LEVEL IV ONE (08:17)
[2024-02-24 08:59] LABS: BASOPHILS # (AUTO) 0.1 X10'3 (0-0.2); BASOPHILS % (AUTO) 0.6 % (0-1); EOSINOPHILS # (AUTO) 0.3 X10'3 (0-0.9); EOSINOPHILS % (AUTO) 2.8 % (0-6); HEMATOCRIT 43.4 % (42.0-52.0); HEMOGLOBIN 14.7 g/dl (14.0-17.9); LYMPHOCYTES # (AUTO) 2.6 X10'3 (1.1-4.8); LYMPHOCYTES % (AUTO) 26.7 % (21-51); MEAN CORPUSCULAR HEMOGLOBIN 32.6 PG (27.0-31.0); MEAN PLATELET VOLUME 8.5 FL (7.4-10.4); MONOCYTES # (AUTO) 0.8 X10'3 (0-0.9); MONOCYTES % (AUTO) 8.4 % (2-12); NEUTROPHILS # (AUTO) 6.1 X10'3 (1.8-7.7); NEUTROPHILS % (AUTO) 61.5 % (42-75); PLATELET COUNT 251 X10'3 (140-440); RED BLOOD COUNT 4.52 X10'6 (4.70-6.10); RED CELL DISTRIBUTION WIDTH 13.3 % (11.5-14.5); WHITE BLOOD COUNT 9.8 X10'3 (4.5-11.0)
[2024-02-24 09:36] LABS: ALANINE AMINOTRANSFERASE 39 U/L (12-78); ALBUMIN 2.8 G/DL (3.4-5.0); ALBUMIN/GLOBULIN RATIO 0.7 (1.1-1.5); ALKALINE PHOSPHATASE 89 IU/L (46-116); ANION GAP 9 (8-16); ASPARTATE AMINO TRANSFERASE 19 U/L (10-37); BILIRUBIN,TOTAL 0.3 MG/DL (0.1-1.0); CALCIUM 8.6 MG/DL (8.5-10.1); CHLORIDE 105 MMOL/L (99-107); CREATININE 0.76 MG/DL (0.60-1.10); GLUCOSE 95 MG/DL (70-104); POTASSIUM 3.6 MMOL/L (3.5-5.1); SODIUM 139 MMOL/L (135-145); TOTAL PROTEIN 6.9 G/DL (6.4-8.2); eCRCL 126 ML/MIN; eGFR > 90 ML/MIN
[2024-02-24 09:38] LABS: BLOOD UREA NITROGEN 10 MG/DL (7-18); BUN/CREATININE RATIO 13.2 (10.0-20.0)
[2024-02-24] MEDS: VANCOmycin 1250MG/NS 250ml Bag 250 ML IV SCH (17:07)
[2024-02-25 05:49] LABS: BASOPHILS % (AUTO) 0.7 % (0-1); EOSINOPHILS # (AUTO) 0.3 X10'3 (0-0.9); EOSINOPHILS % (AUTO) 4.5 % (0-6); HEMATOCRIT 42.7 % (42.0-52.0); HEMOGLOBIN 14.4 g/dl (14.0-17.9); LYMPHOCYTES # (AUTO) 2.8 X10'3 (1.1-4.8); LYMPHOCYTES % (AUTO) 39.9 % (21-51); MEAN CORPUSCULAR HGB CONC 33.8 g/dL (33.0-36.5); MEAN CORPUSCULAR VOLUME 94.9 FL (78-98); MEAN PLATELET VOLUME 8.2 FL (7.4-10.4); MONOCYTES # (AUTO) 0.7 X10'3 (0-0.9); MONOCYTES % (AUTO) 9.3 % (2-12); NEUTROPHILS # (AUTO) 3.2 X10'3 (1.8-7.7); NEUTROPHILS % (AUTO) 45.6 % (42-75); PLATELET COUNT 263 X10'3 (140-440); RED CELL DISTRIBUTION WIDTH 13.4 % (11.5-14.5)
[2024-02-25 05:57] LABS: ALANINE AMINOTRANSFERASE 40 U/L (12-78); ALBUMIN 2.8 G/DL (3.4-5.0); ALBUMIN/GLOBULIN RATIO 0.7 (1.1-1.5); ALKALINE PHOSPHATASE 92 IU/L (46-116); ANION GAP 10 (8-16); ASPARTATE AMINO TRANSFERASE 18 U/L (10-37); BILIRUBIN,TOTAL 0.3 MG/DL (0.1-1.0); BLOOD UREA NITROGEN 10 MG/DL (7-18); BUN/CREATININE RATIO 12.8 (10.0-20.0); CALCIUM 8.5 MG/DL (8.5-10.1); CHLORIDE 106 MMOL/L (99-107); CREATININE 0.78 MG/DL (0.60-1.10); GLUCOSE 103 MG/DL (70-104); POTASSIUM 3.9 MMOL/L (3.5-5.1); SODIUM 141 MMOL/L (135-145); TOTAL CARBON DIOXIDE 24.7 MMOL/L (24-32); TOTAL PROTEIN 6.6 G/DL (6.4-8.2); eCRCL 122 ML/MIN; eGFR > 90 ML/MIN
[2024-02-25 07:00] VITALS: BP 110/78; PULSE 66; RESP 14; TEMP 98.5; O2SAT 96
[2024-02-25] MEDS ORDERED: DOXY-243 PO (10:09)
[2024-02-25] MEDS ORDERED: PANT-47 PO (10:09)
[2024-02-25] MEDS ORDERED: ACET-1008 PO (10:14)
[2024-02-25 10:49] VITALS: BP 96/52; PULSE 82; RESP 14; TEMP 98.5; O2SAT 96
[2024-02-25] MEDS ORDERED: VANCOMYCIN LEVEL IV ONE (17:30)
== END 2024-02-25 13:43 | disposition home or self-care (01) | DRG 383 ==
LOC: ER 04:44 → ED HOLD 09:37 → SUR 3N 17:25
PROVIDERS: ADMIT Internal Medicine; ATTEND Internal Medicine
DX: L03.114 Cellulitis of left upper limb (principal); I80.8 Phlebitis and thrombophlebitis of other sites; I10 Essential (primary) hypertension; F32.A Depression, unspecified; F41.9 Anxiety disorder, unspecified; G89.29 Other chronic pain; M54.9 Dorsalgia, unspecified; F12.90 Cannabis use, unspecified, uncomplicated; F15.90 Other stimulant use, unspecified, uncomplicated; F17.210 Nicotine dependence, cigarettes, uncomplicated; Z88.8 Allergy status to other drugs, medicaments and biological substances; Z82.49 Family history of ischemic heart disease and other diseases of the circulatory system
CPT/HCPCS: 36415; 71045; 73070; 80048; 80053; 80202; 83605; 83880; 84145; 84484; 85025; 87040; 87081; 93005; 93971; 99285; A6258; G0378; J1650; J2270; J2543; J3370; J7030; J7050

== ENCOUNTER 2024-12-08 00:56 | Emergency (ER) | payer MEDICAID ==
[~2024-12-08] VITALS: Ht 180.3 cm; Wt 97.5 kg
[~2024-12-08 00:56] MED LIST changes: +ACET-1008 PO; +BUSP5TAB3 PO; -DIPH25CA83 PO; -FAMO-128 PO; -IBUP-1051 PO; -NORCO10T PO; +PANT-47 PO; -PROC-8 PO
[2024-12-08 01:03] VITALS: BP 97/66; PULSE 94; RESP 14; O2SAT 98
[2024-12-08] MEDS ORDERED: SULF1TAB49 PO (02:56)
[2024-12-08 03:08] VITALS: TEMP 97.6
[2024-12-08] MEDS: sulfamethoxazole/trimethoprim DS (800/160mg) tablet PO ONE (03:12)
== END 2024-12-08 03:15 | disposition home or self-care (01) ==
LOC: ER 00:56
DX: L03.011 Cellulitis of right finger (principal); I10 Essential (primary) hypertension; G89.29 Other chronic pain; M54.9 Dorsalgia, unspecified; F41.9 Anxiety disorder, unspecified; F32.A Depression, unspecified; F12.90 Cannabis use, unspecified, uncomplicated; F15.90 Other stimulant use, unspecified, uncomplicated; Z98.890 Other specified postprocedural states; Z88.8 Allergy status to other drugs, medicaments and biological substances
CPT/HCPCS: 99283

== ENCOUNTER 2025-01-05 17:06 | Emergency (ER) | payer MEDICAID ==
[~2025-01-05] VITALS: Ht 182.9 cm; Wt 88.1 kg
[2025-01-05] MEDS: docusate sod 100mg capsule PO ONE (18:15)
[2025-01-05] MEDS: magnesium citrate 296ml oral solution PO ONE (18:15)
[2025-01-05] MEDS ORDERED: GOLYS PO (18:51)
[2025-01-05] MEDS ORDERED: DOCU-148 PO (18:51)
[2025-01-05 18:59] VITALS: BP 155/78; PULSE 73; RESP 17; TEMP 98.2; O2SAT 99
== END 2025-01-05 18:55 | disposition home or self-care (01) ==
LOC: ER 17:08
DX: K59.00 Constipation, unspecified (principal); I10 Essential (primary) hypertension; G89.29 Other chronic pain; M54.9 Dorsalgia, unspecified; F41.9 Anxiety disorder, unspecified; F32.A Depression, unspecified; F12.90 Cannabis use, unspecified, uncomplicated; F15.90 Other stimulant use, unspecified, uncomplicated; Z98.890 Other specified postprocedural states; Z72.89 Other problems related to lifestyle; Z79.899 Other long term (current) drug therapy; Z88.8 Allergy status to other drugs, medicaments and biological substances
CPT/HCPCS: 74018; 99283

== ENCOUNTER 2025-01-09 00:25 | Emergency (ER) | payer MEDICAID ==
[~2025-01-09 00:25] MED LIST changes: +DOCU-148 PO; +GOLYS PO
== END 2025-01-09 00:38 | disposition left against medical advice (07) ==
LOC: ER 00:30
DX: K56.609 Unspecified intestinal obstruction, unspecified as to partial versus complete obstruction (principal); Z88.8 Allergy status to other drugs, medicaments and biological substances; Z53.21 Procedure and treatment not carried out due to patient leaving prior to being seen by health care provider